=== PATIENT | male | born 1980 | race Caucasian/White ===

== ENCOUNTER 2018-03-04 10:59 | Emergency (ER) | payer SELFPAY ==
[~2018-03-04] VITALS: Ht 170.2 cm; Wt 73.4 kg
[~2018-03-04 10:59] MED LIST: BACTRIM,SEPT1 TABLET PO; KEFLEX500 MG PO
[2018-03-04 11:41] LABS: HEMATOCRIT 39.9 % (38.0-50.0); HEMOGLOBIN 14.4 G/DL (12.5-16.6); MCH 32.4 PG (29.0-34.0); MCHC 36.1 G/DL (30.0-36.0); MCV 89.7 FL (86-99); PLATELET COUNT 218 K/uL (156-360); RBC DIS.WIDTH-CV 12.3 % (11.8-14.6); RBC DIS.WIDTH-SD 40.3 % (39-53); RED BLOOD COUNT 4.45 M/uL (4.00-5.50); WHITE BLOOD COUNT 20.6 K/uL (4.1-10.2)
[2018-03-04 12:05] LABS: ALBUMIN 4.8 g/dL (3.2-4.8); CHLORIDE 101 mEq/L (99-109); POTASSIUM 4.2 mEq/L (3.7-5.4); SODIUM 136 mEq/L (136-147)
[2018-03-04 12:06] LABS: MAGNESIUM 2.4 mg/dL (1.3-2.7)
[2018-03-04 12:08] LABS: GLUCOSE 103 mg/dL (70-99); TOTAL PROTEIN 7.8 g/dL (6.4-8.3)
[2018-03-04 12:09] LABS: TOTAL BILIRUBIN 1.1 mg/dL (0.0-1.0)
[2018-03-04 12:10] LABS: SERUM ETHYL ALCOHOL 79 mg/dL
[2018-03-04 12:11] LABS: ALKALINE PHOSPHATASE 108 IU/L (3-129); CREATININE 0.9 mg/dL (0.6-1.3); GFR ESTIMATE (CALCULATED) > 59 mL/min/ (58.99-99999)
[2018-03-04 12:12] LABS: UREA NITROGEN (BUN) 11 mg/dL (9-23)
[2018-03-04 12:13] LABS: AST (GOT) 21 IU/L (2-34)
[2018-03-04 12:14] LABS: ALT (GPT) 22 IU/L (3-49)
[2018-03-04 12:15] LABS: TROP-I INTERPRETATION NEGATIVE; TROPONIN-I < 0.01 ng/mL (0.0-0.30)
[2018-03-04 13:04] LABS: AMPHETAMINE NEGATIVE (500 ng/mL); BARBITURATES NEGATIVE (200 ng/mL); BENZODIAZEPINES NEGATIVE (150 ng/mL); BUPRENORPHINE NEGATIVE (10 ng/mL); COCAINE PRESUMPTIVE POSITIVE (150 ng/mL); METHADONE PRESUMPTIVE POSITIVE (200 ng/mL); METHAMPHETAMINE NEGATIVE (500 ng/mL); OPIATES (MORPHINE) NEGATIVE (100 ng/mL); OXYCODONE NEGATIVE (100 ng/mL); PHENCYCLIDINE NEGATIVE (25 ng/mL); PROPOXYPHENE NEGATIVE (300 ng/mL); THC CANNABINOIDS NEGATIVE (50 ng/mL); TRICYCLIC ANTIDEPRESSANTS NEGATIVE (300 ng/mL)
[2018-03-04 15:48] LABS: TROP-I INTERPRETATION NEGATIVE; TROPONIN-I < 0.01 ng/mL (0.0-0.30)
[2018-03-04 16:05] VITALS: BP 120/70
== END 2018-03-04 16:13 | disposition home or self-care (01) ==
LOC: EME 10:59
PROVIDERS: Emergency Medicine
DX: R07.9 Chest pain, unspecified (principal); F14.10 Cocaine abuse, uncomplicated; F10.10 Alcohol abuse, uncomplicated; R94.31 Abnormal electrocardiogram [ECG] [EKG]; F17.200 Nicotine dependence, unspecified, uncomplicated; Y90.3 Blood alcohol level of 60-79 mg/100 ml; Z86.14 Personal history of Methicillin resistant Staphylococcus aureus infection
CPT/HCPCS: 71046; 80053; 83735; 84484; 84999; 85027; 93005; 99281; 99285; G0480; J2060; J7030